=== PATIENT | female | born 1985 | race Caucasian/White ===

== ENCOUNTER 2017-01-18 10:37 | Day surgery (SDC) | payer OTHER ==
--- NOTE | 2017-01-17 17:20 | HISTORY & PHYSICAL EXAMINATION ---
DATE OF ADMISSION: 01/18/2017 She is presenting on 01/18/2017 for D&E for missed . HISTORY OF PRESENT ILLNESS: The patient is a 31-year-old white female, para 1-0-0-1, 8 weeks 6 days by dates, measuring 7 weeks 5 days by ultrasound today, revealing a demise. The patient has a history of subchorionic hemorrhage. She is not bleeding or cramping at the present time. She was given options for D&E versus expectant management and the patient chose D&E. She was given informed consent including the risks, benefits and alternatives to the procedure. PAST MEDICAL HISTORY: Positive for chlamydia in the past. PAST SURGICAL HISTORY: x1 in 2016. SOCIAL HISTORY: Denies smoking, alcohol or drug use. OBSTETRICAL HISTORY: x1 for non-reassuring heart tones. FAMILY HISTORY: Noncontributory. REVIEW OF SYSTEMS: Negative. ALLERGIES: No known allergies. MEDICATIONS: vitamins. PHYSICAL EXAMINATION: HEENT: Within normal limits. LUNGS: Clear to auscultation. CARDIOVASCULAR: Regular rate and rhythm. ABDOMEN: Soft and gravid. No pain. EXTREMITIES: Within normal limits. NEUROLOGICALLY: Intact. ASSESSMENT: Missed at 7 weeks 5 days. PLAN: D&E. The patient is O positive and will not receive RhoGAM.
[~2017-01-18] VITALS: Ht 162.6 cm; Wt 70.0 kg
[~2017-01-18 10:37] MED LIST: CEFAZOLIN 2000MG IV PUSH 10 ML IV SCH; LACTATED RINGER'S 1000ML 1,000 ML IV SCH; MTR600X PO; OXYC5TAB PO; PATIENT'S HEIGHT AND/OR WEIGHT NEEDED SCH; PRENTAB26 PO
[2017-01-18 11:38] VITALS: BP 111/70; PULSE 76; TEMP 36.9; O2SAT 100; Ht 162.6 cm; Wt 70.0 kg
[2017-01-18 11:56] LABS: BASO % 0.4 %; BASO ABS # 0.03 K/uL (0-0.2); EOS % 1.1 %; HEMATOCRIT 36.2 % (37-47); IG% 0.1 %; LYMPH % 27.1 %; LYMPH ABS # 1.94 K/uL (1.2-3.4); MEAN CELL VOLUME 88.3 fL (80-100); MEAN CORPUSCULAR HEMOGLOBIN 29.5 pg (25-34); MEAN PLATELET VOLUME 10.2 fL (7.4-10.4); MONO % 6.4 %; NEUT % 64.9 %; PLATELET COUNT 227 K/uL (130-400); WHITE BLOOD COUNT 7.17 K/uL (4.8-10.8)
[2017-01-18 11:58] LABS: COMPLETE YES; MEAN CORPUSCULAR HGB CONC 33.4 g/dl (32-36)
[2017-01-18] MEDS ORDERED: FENTANYL CITRATE INJ 50 MCG/1 ML 2 ML VIAL IV PRN (12:00)
[2017-01-18] MEDS ORDERED: ONDANSETRON INJ 2 MG/ML 2 ML VIAL IV PRN ×2 (12:00→16:30)
[2017-01-18] MEDS ORDERED: LABETALOL HCL IV 5 MG/ML 20ML IV PRN (12:00)
[2017-01-18] MEDS ORDERED: HYDROmorphone INJ 1 MG/ML SYR IV PRN (12:00)
[2017-01-18] MEDS ORDERED: MEPERIDINE HCL 25 MG/ML CARP IV PRN (12:00)
[2017-01-18] MEDS ORDERED: EpHEDrine SULFATE INJ 50 MG/ML AMP IV PRN (12:00)
[2017-01-18] MEDS ORDERED: ATROPINE SULFATE 0.1 MG/ML 5ML SYR IV PRN (12:00)
--- NOTE | 2017-01-18 14:01 | History & Physical Bridge Note ---
H&P Re-Evaluation Bridge Note: I have examined the patient, reviewed the History & Physical and in the interval since the performance of the History & Physical I have noted the following changes of clinical significance: No changes noted
[2017-01-18] MEDS ORDERED: LIDOCAINE HCL 2% 2 ML VIAL (20MG/ML) ONE (14:54)
[2017-01-18] MEDS ORDERED: PROPOFOL IV EMULSION 10 MG/ML 20 ML VIAL IV ONE (14:54)
[2017-01-18] MEDS ORDERED: FENTANYL CITRATE INJ 50 MCG/1 ML 2 ML VIAL ONE (14:55)
[2017-01-18] MEDS ORDERED: MIDAZOLAM HCL 1 MG/ML 2ML VIAL ONE (14:55)
[2017-01-18] MEDS ORDERED: MISOPROSTOL 200 MCG TAB PV ONE (15:45)
[2017-01-18] MEDS ORDERED: ONDANSETRON INJ 2 MG/ML 2 ML VIAL ONE (15:55)
[2017-01-18] MEDS ORDERED: DEXAMETHASONE SOD INJ 4 MG/ML VIAL ONE (15:55)
[2017-01-18] MEDS ORDERED: SODIUM CHLORIDE 0.9% 1000ML 1,000 ML IV SCH (16:16)
[2017-01-18] MEDS ORDERED: OXYC-57 PO ×3 (16:18→16:27)
--- NOTE | 2017-01-18 16:19 | Discharge Instructions ---
Discharge Instructions Date of Service Jan 18, 2017. Admission Reason for Admission: Missed Discharge Discharge Diagnosis / Problem: postop Discharge Goals Goal(s): Routine recovery after surgery Activity Recommendations Activity Limitations: as noted below ACTIVITY RECOMMENDATIONS: * Avoid tampons, douching, hot tubs, pools, and intercourse until bleeding has stopped. * May shower as usual. * No strenuous activity for 24-48 hours. After 24-48 hours, you can do anything you feel like doing (driving and sports are okay). RETURN TO SCHOOL/WORK: * You may return to school or work after 24 hours unless specified by your physician. DIET: * Resume previous diet. MEDICATIONS: Resume previous medications unless instructed otherwise by your surgeon. Ibuprofen 200mg 2-3 tablets every 4-6 hours as needed --OR-- Aleve 2 tablets every 8-12 hours as needed for post-operative discomfort Medications are over the counter. Tylenol may be used if above medications are contraindicated or not preferred. Medication should be taken with food or milk. do not take on an empty stomach. SPECIAL CARE INSTRUCTIONS: * Check temperature twice daily for one week. Report any elevation over 101 degrees. * Call office if you experience increased pelvic pain or discomfort not relieved by pain medicine, if you have foul smelling vaginal discharge, if you have bleeding that is heavier than a normal menstrual flow. If you are changing a maxi pad every 1- 2 hours, this is too heavy. vaginal spotting is normal for 1-2 weeks. FOLLOW UP VISIT: Call your doctor's office for a post-operative visit. . Current Hospital Diet Patient's current hospital diet: Discharge Diet Recommended Diet: Regular Diet Procedures Procedures Performed: Dilatation and Evacution with suction Pending Studies Studies pending at discharge: no Medical Emergencies . Who to Call and When: Medical Emergencies: If at any time you feel your situation is an emergency, please call 911 immediately. . Non-Emergent Contact Non-Emergency issues call your: Specialist . . "Provider Documentation" section prepared by Jose Sanchez. . VTE Core Measure Inpt VTE Proph given/why not?: Treatment not indicated
[2017-01-18] MEDS ORDERED: IBUPROFEN 600 MG TAB PO PRN (16:30)
[2017-01-18] MEDS ORDERED: KETOROLAC TROMETHAMINE 30 MG/ML VIAL IV. PRN (16:30)
[2017-01-18] MEDS ORDERED: OXYCODONE/ACETAMINOPHEN 5-325 TAB PO PRN ×2 (16:30)
[2017-01-18] MEDS ORDERED: METOCLOPRAMIDE HCL INJ 5 MG/ML 2 ML VIAL IV PRN (16:30)
[2017-01-18] MEDS ORDERED: HYDROCODONE/ACETAMOPHEN 5/325MG TAB PO PRN ×2 (16:30)
[2017-01-18] MEDS ORDERED: MTR600X PO (16:30)
--- NOTE | 2017-01-18 16:53 | Anesthesiology Progress Note ---
Anesthesia Post Op Note Date & Time Jan 18, 2017 at 16:52 Vital Signs Pain Intensity: 0 Vital Signs Past 12 Hours Date Time Temp Pulse Resp B/P (MAP) Pulse Ox O2 Delivery O2 Flow Rate FiO2 01/18/17 16:45 69 18 119/77 100 Room Air 01/18/17 16:35 9 18 115/80 100 Oxymask 10 01/18/17 16:25 81 14 104/65 100 Oxymask 10 01/18/17 16:16 36.5 56 14 95/63 100 Oxymask 10 01/18/17 11:38 36.9 76 18 111/70 (84) 100 Room Air Notes Mental Status: alert / awake / arousable, participated in evaluation Pt Amnestic to Procedure: Yes Nausea / Vomiting: adequately controlled Pain: adequately controlled Airway Patency, RR, SpO2: stable & adequate BP & HR: stable & adequate Hydration State: stable & adequate Anesthetic Complications: no major complications apparent
[2017-01-18 17:03] VITALS: BP 122/66; PULSE 58; TEMP 36.6; O2SAT 100
[2017-01-18 17:35] VITALS: BP 115/67; PULSE 71; TEMP 36.6; O2SAT 100
[2017-01-18 18:00] VITALS: BP 123/68; PULSE 72; TEMP 36.6; O2SAT 100
--- NOTE | 2017-01-18 20:14 | OPERATIVE REPORT ---
DATE OF OPERATION: 01/18/2017 INDICATION FOR PROCEDURE: This is a 31-year-old, with missed at 8 weeks. PREOPERATIVE DIAGNOSIS: Missed at 8 weeks. POSTOPERATIVE DIAGNOSIS: Same. SURGEON: Jose Sanchez MD PROJECT ASST: None. ANESTHESIA: General. ESTIMATED BLOOD LOSS: 20 mL. IV FLUIDS: 1 liter. URINE OUTPUT: 150 mL of clear urine at the beginning of the procedure. FINDINGS: An 8-10 weeks' sized uterus, moderate amount of products of conception evacuated. The vaginal and pelvic exam was unremarkable. PATHOLOGY: Products of conception. COMPLICATIONS: None. DRAINS: None. DISPOSITION: Stable to recovery room. PROCEDURE: The patient was taken to the operating room where she was prepped and draped in normal sterile fashion in dorsal lithotomy position. The bladder was catheterized and 150 mL of clear urine was obtained. A weighted speculum was placed in the vagina. Lincoln retractor was used to retract the anterior part of the vagina. A single tooth tenaculum was used to grab the cervix. Cervix was sounded to 9 cm. Cervix was dilated to a size 24. A size #8 suction curette was introduced into the uterine cavity. Suction was performed and one could see the products of conception going through the suction tube. After suction, a sharp curette was introduced in the uterine cavity and curettage performed in all 4 quadrants until a gritty texture was obtained. Suction again was performed and this time no products of conception were seen coming through the tube. There was good hemostasis at the end of the procedure. The single toothed tenaculum site had no bleeding. All instruments were removed from the vagina and the uterus and accounted for x2 including sponges and retractors. The patient was sent to recovery in stable condition. I attest to the content of the Intraoperative Record and any orders documented therein. Any exception s are noted below.
== END 2017-01-18 18:15 | disposition home or self-care (01) ==
LOC: C.ACU 10:37
PROVIDERS: ATTEND Obstetrics & Gynecology
DX: O02.1 Missed abortion (principal)

== ENCOUNTER 2018-09-17 02:39 | Inpatient (IN) ==
[2018-09-17] MEDS ORDERED: OXYTOCIN 30 UNITS/500 ML BAG IV PRN ×2 (02:59→13:40)
[2018-09-17 03:25] LABS: Hematocrit (blood only) 39.1 % (37-47); Hemoglobin 13.3 g/dL (12.0-16.0); Mean Corpuscular Volume 87.9 fL (80-100); Mean Platelet Volume 10.9 fL (7.4-10.4); Platelet Count 198 K/uL (130-400); RDW Coefficient of Variation 14.3 % (11.5-14.5); RDW Standard Deviation 46.3 fL (36.4-46.3); Red Blood Count 4.45 M/uL (4.2-5.4); White Blood Count 12.15 K/uL (4.8-10.8)
[2018-09-17] MEDS: LACTATED RINGER'S 1,000 ML IV PRN ×3 (03:26→11:19)
[2018-09-17] MEDS ORDERED: fentaNYL citrate 100 MCG/2 ML VIAL ONE (03:29)
[2018-09-17] MEDS ORDERED: ePHEDrine sulfate 50 MG/ML AMP ONE (03:29)
[2018-09-17] MEDS ORDERED: BUPIVACAINE 0.25% 30 ML VIAL ONE (03:29)
[2018-09-17] MEDS ORDERED: fentaNYL 2MCG/ML ROPIV 1.25MG/ML 100 ML BAG EPI ONE (03:30)
--- NOTE | 2018-09-17 04:20 | Anesthesiology Consultation ---
Date of Service September 17, 2018 Assessment & Plan (1) Encounter for pre-operative examination: Chart Review Chart Review: Patient NOT seen in Pre Admission Testing and Acceptable Risk for Labor Epidural Consults Requested none History Height/Weight Height: 5 ft 4 in Weight: 90.265 kg Allergies Allergy/AdvReac Type Severity Reaction Status Date / Time No Known Allergies Allergy Verified 09/17/18 03:23 Medications Home Medications Medication Instructions Recorded Confirmed Last Taken vit no.[id number]-[id number] 1 tab PO DAILY 09/17/18 09/17/18 09/16/18 08:00 [ Vitamin] Active Medications Generic Name Dose Route Start Last Admin Trade Name Freq PRN Reason Stop Dose Admin Lactated Ringer's 1,000 mls @ 125 mls/hr 09/17/18 02:59 09/17/18 03:26 Lr IV 09/19/18 02:58 999 mls/hr .Q8H PRN Administration L&D Protocol Protocol Past Medical History Medical History Spontaneous 2016 with D/C [place] teeth removed Past Surgical History Surgical History Previous section 2016 for intolerance Social History Smoking Status: Former smoker Do You Dip or Chew Tobacco: No Hx Alcohol Use: No Hx Substance Use: No substance use type: does not use Physical Exam Vital Signs Last Vital Signs Temp 37.0 C 09/17/18 02:57 Pulse 74 09/17/18 04:17 Resp 18 09/17/18 02:57 BP 121/78 09/17/18 04:16 Pulse Ox 96 09/17/18 04:17 Testing Laboratory Results 09/17/18 03:12
[2018-09-17] MEDS ORDERED: ONDANSETRON INJ 2 MG/ML 2 ML VIAL IV PRN (04:24)
[2018-09-17] MEDS ORDERED: ePHEDrine sulfate 50 MG/ML AMP IV PRN (04:24)
[2018-09-17] MEDS ORDERED: NALOXONE HCL 0.4 MG/1 ML VIAL/CARP IV PRN (04:24)
[2018-09-17] MEDS ORDERED: DiphenhydrAMINE HCL 50 MG/ML VIAL IV PRN (04:24)
[2018-09-17] MEDS ORDERED: fentaNYL 2MCG/ML ROPIV 1.25MG/ML 100 ML BAG EPI PRN (04:24)
[2018-09-17] MEDS ORDERED: NALOXONE HCL 1 MG in SODIUM CHLORIDE 0.9% 1000ML 1,000 ML IV PRN (04:24)
[2018-09-17] MEDS ORDERED: NALBUPHINE HCL INJ 10 MG/ML AMP IV PRN (04:24)
--- NOTE | 2018-09-17 04:28 | Labor Progress Brief Note ---
Date of Service September 17, 2018 Met pt and spouse Prior. wishes to do TOLAC discussed c/sec risk and alternatives again [facility] consent signed {t assures me in addition to my discussion,she has also had talks w/ Dr Boyd and wishes to proceed Epidural analgesia in place FHR; CAT1 ctx 2-3mins VE; 4/100/-1 Results & Data Vital Signs (Past 12 Hours) Vital Signs Temp Pulse Resp BP Pulse Ox 09/17/18 04:22 90 95 09/17/18 04:18 75 130/81 09/17/18 04:17 74 96 09/17/18 04:16 74 121/78 94 09/17/18 04:14 76 129/79 09/17/18 04:12 71 122/64 96 09/17/18 04:11 84 129/61 09/17/18 04:08 92 H 91 09/17/18 04:07 91 H 98 09/17/18 04:06 90 148/76 H 09/17/18 04:04 97 H 120/84 09/17/18 04:02 73 98 09/17/18 03:57 73 98 09/17/18 02:57 37.0 C 57 L 18 116/77 09/17/18 02:56 57 L 116/77
--- NOTE | 2018-09-17 09:54 | Labor Progress Brief Note ---
Date of Service September 17, 2018 Pt doing well FHR; CAT1 VE; 8/100/0 with bulging membranes ctx; 2-4mins Results & Data Vital Signs (Past 12 Hours) Vital Signs Temp Pulse Resp BP Pulse Ox 09/17/18 09:48 61 98 09/17/18 09:47 68 137/77 09/17/18 09:43 65 98 09/17/18 09:38 67 99 09/17/18 09:33 80 99 09/17/18 09:31 81 121/79 94 09/17/18 09:28 61 96 09/17/18 09:23 59 L 98 09/17/18 09:18 59 L 123/73 99 09/17/18 09:13 66 98 09/17/18 09:08 67 97 09/17/18 09:03 68 99 09/17/18 09:01 60 118/75 09/17/18 08:58 70 97 09/17/18 08:54 70 94 09/17/18 08:53 67 98 09/17/18 08:48 69 96 09/17/18 08:46 74 119/79 09/17/18 08:43 73 98 09/17/18 08:38 66 97 09/17/18 08:33 63 97 09/17/18 08:32 74 115/77 09/17/18 08:27 68 97 09/17/18 08:22 77 97 09/17/18 08:17 69 97 09/17/18 08:16 63 117/71 09/17/18 08:12 84 96 09/17/18 08:07 84 98 09/17/18 08:03 66 121/78 94 09/17/18 08:02 80 96 09/17/18 08:00 18 09/17/18 07:57 76 97 09/17/18 07:52 69 97 09/17/18 07:47 77 116/75 97 09/17/18 07:42 88 96 09/17/18 07:37 74 96 09/17/18 07:33 76 110/72 09/17/18 07:32 78 97 09/17/18 07:31 78 94 09/17/18 07:27 78 97 09/17/18 07:22 75 97 09/17/18 07:17 77 97 09/17/18 07:16 88 119/71 93 09/17/18 07:12 76 96 09/17/18 07:10 37.1 C 18 09/17/18 07:07 87 96 09/17/18 07:02 83 96 09/17/18 07:01 80 122/74 91 09/17/18 07:00 18 09/17/18 06:57 82 96 09/17/18 06:52 78 96 09/17/18 06:47 70 97 09/17/18 06:46 70 116/73 94 09/17/18 06:42 72 96 09/17/18 06:37 71 96 09/17/18 06:32 94 H 97 09/17/18 06:31 95 H 106/68 09/17/18 06:30 18 09/17/18 06:27 87 97 09/17/18 06:22 97 H 96 09/17/18 06:17 89 97 09/17/18 06:16 104 H 107/67 94 09/17/18 06:12 77 96 09/17/18 06:07 79 96 09/17/18 06:02 70 115/66 94 09/17/18 06:00 18 09/17/18 05:57 70 96 09/17/18 05:52 75 95 09/17/18 05:47 70 108/66 96 09/17/18 05:42 66 96 09/17/18 05:37 87 95 09/17/18 05:32 71 96 09/17/18 05:31 66 113/69 09/17/18 05:30 18 09/17/18 05:27 78 96 09/17/18 05:22 72 97 09/17/18 05:17 77 97 09/17/18 05:16 87 112/87 09/17/18 05:12 90 94 09/17/18 05:07 83 96 09/17/18 05:04 100 H 94 09/17/18 05:02 73 96 09/17/18 05:01 57 L 114/80 09/17/18 05:00 18 09/17/18 04:57 65 96 09/17/18 04:52 63 96 09/17/18 04:47 62 95 09/17/18 04:44 81 127/86 09/17/18 04:43 62 94 09/17/18 04:42 59 L 96 09/17/18 04:39 70 125/81 09/17/18 04:37 64 96 09/17/18 04:35 57 L 119/79 09/17/18 04:32 68 98 09/17/18 04:31 56 L 127/79 09/17/18 04:30 18 09/17/18 04:27 69 94 09/17/18 04:25 80 111/80 09/17/18 04:22 90 95 09/17/18 04:18 75 130/81 09/17/18 04:17 74 96 09/17/18 04:16 74 121/78 94 09/17/18 04:14 76 129/79 09/17/18 04:12 71 122/64 96 09/17/18 04:11 84 129/61 09/17/18 04:08 92 H 91 09/17/18 04:07 91 H 98 09/17/18 04:06 90 148/76 H 09/17/18 04:04 97 H 120/84 09/17/18 04:02 73 98 09/17/18 03:57 73 98 09/17/18 02:57 37.0 C 57 L 18 116/77 09/17/18 02:56 57 L 116/77
--- NOTE | 2018-09-17 11:15 | History and Physical Report ---
DATE OF ADMISSION: 09/17/2018 The patient is a 33-year-old G3, P1, due date 09/13/2018 making her 40 weeks 4 days who presented to labor and delivery with contractions. On arrival, she was mohinder and upon exam she was found to be 4 cm dilated. Decision was therefore made to admit patient and anticipate vaginal delivery. The patient is a prior section. In the office she had been seen several times and has been counseled on risks of or trial of labor after . We discussed risks of uterine rupture, though small, is still present. The patient after several concerns decided to proceed with trial of labor after section. Today on admission we discussed that again and she had concerns showing that she is willing to undergo a trial of labor after . COURSE: Unremarkable. LABORATORIES: Blood type O positive, antibody negative, rubella immune, GBS negative. PAST MEDICAL HISTORY: No history of diabetes, hypertension or asthma. PAST SURGICAL HISTORY: The patient has had dental surgery, section. ALLERGIES: No known drug allergies. SOCIAL HISTORY: Denies tobacco, drug or alcohol use. FAMILY HISTORY: Noncontributory. PHYSICAL EXAMINATION: GENERAL: Well-developed, well-nourished white female in labor discomfort. HEART: S1, S2, regular rhythm and rate. LUNGS: Clear to auscultation bilaterally. PELVIC: By nurse on admission, patient is 4 cm dilated. EXTREMITIES: No cyanosis, clubbing or edema. ASSESSMENT AND PLAN: 33-year-old G2, P1 at 40 weeks and 4 days. Previous section. The patient wishes to try to do trial of labor after . Risks has been discussed several times in the office and today on admission has been discussed again. The patient wishes to proceed with trial of labor. She was admitted and we anticipate vaginal delivery at this moment.
[2018-09-17] MEDS ORDERED: METHYLERGONOVINE MALEATE 0.2 MG/ML AMP ONE (13:31)
[2018-09-17] MEDS ORDERED: OXYCODONE/ACETAMINOPHEN 5mg/325mg TAB PO PRN (13:40)
[2018-09-17] MEDS ORDERED: ACETAMINOPHEN W/CODEINE #3 1 TAB PO PRN (13:40)
[2018-09-17] MEDS ORDERED: SUPERCREAM 0.870% 15 GM JAR EXT PRN (13:40)
[2018-09-17] MEDS ORDERED: HYDROCORTISONE ACETATE 25 MG SUPP PR PRN (13:40)
[2018-09-17] MEDS ORDERED: BENZOCAINE 20% AER SPR 82.5 GM CAN EXT PRN (13:40)
[2018-09-17] MEDS ORDERED: BISACODYL 10 MG SUPP PR PRN (13:40)
[2018-09-17] MEDS ORDERED: METHYLERGONOVINE MALEATE 0.2 MG/ML AMP IM ONE (13:40)
[2018-09-17] MEDS ORDERED: ACETAMINOPHEN 325 MG TAB PO PRN (13:40)
[2018-09-17] MEDS ORDERED: DIPHTHERIA/TETANUS/PERTUSSIS 0.5 ML SYR/VIAL IM ONE (13:40)
--- NOTE | 2018-09-17 14:59 | Anesthesia Procedure Note ---
Date of Service September 17, 2018 Anesthesia Post Epidural Note Vital Signs Vital Signs: Temp Pulse Resp BP Pulse Ox 37.1 C 54 L 20 112/66 94 09/17/18 10:36 09/17/18 14:46 09/17/18 14:16 09/17/18 14:46 09/17/18 13:38 Notes Mental Status: alert / awake / arousable and participated in evaluation Nausea / Vomiting: adequately controlled Pain: adequately controlled Airway Patency, RR, SpO2: stable & adequate BP & HR: stable & adequate Hydration State: stable & adequate Neuraxial Anesthesia: was administered and sensory block is resolving Anesthetic Complications: no major complications apparent and Pt Satisfied with anesthetic care Epidural: Removed without complications and With tip intact
[2018-09-17] MEDS: IBUPROFEN 600 MG TAB PO PRN (20:04)
[2018-09-17] MEDS: DOCUSATE SODIUM 100 MG CAP PO SCH (20:04)
--- NOTE | 2018-09-18 00:06 | Operative Report ---
DATE OF OPERATION: 09/17/2018 The patient had a previous for distress, requested attempted . She is a 3, at this point para 2. She had an ectopic . She was admitted in spontaneous labor. She was about 4 cm when she was admitted. She had to be about 5-6. She received epidural anesthesia from which she received good pain relief. Membranes eventually ruptured spontaneously. Fluid was clear. She had an unstimulated labor. She went to full dilatation and under an hour pushed out a live female infant via direct occiput anterior position over an intact perineum. was suctioned through the mouth and the nose. Cord was clamped and cut by the father. Cord blood was taken. With I.V. Pitocin running, the placenta was removed intact. We also gave her 0.2 of IM Methergine to help the uterus contract. The uterus contracted nicely. Hemostasis was good. Perineum was intact. Estimated blood loss was under 200 mL. One and 5-minute Apgars in my estimation were 8 and 9 respectively. I attest to the content of the Intraoperative Record and any orders documented therein. Any exception s are noted below.
[2018-09-18 06:36] LABS: Hematocrit (blood only) 37.9 % (37-47); Hemoglobin 12.6 g/dL (12.0-16.0); Mean Corpuscular Hgb Conc 33.2 g/dL (32-36); Mean Corpuscular Volume 89.4 fL (80-100); Mean Platelet Volume 11.4 fL (7.4-10.4); Platelet Count 174 K/uL (130-400); RDW Coefficient of Variation 14.8 % (11.5-14.5); RDW Standard Deviation 48.2 fL (36.4-46.3); Red Blood Count 4.24 M/uL (4.2-5.4)
[2018-09-18] MEDS: IBUPROFEN 600 MG TAB PO PRN ×2 (07:44→13:50)
[2018-09-18] MEDS: DOCUSATE SODIUM 100 MG CAP PO SCH (07:44)
[2018-09-18] MEDS ORDERED: PRENATAL VITAMIN 1 TAB PO SCH (08:00)
--- NOTE | 2018-09-18 10:07 | Obstetrical Progress Note ---
Date of Service September 18, 2018 Subjective doing fine Physical Exam Constitutional: WD/WN, vitals as above comfortable abdomen soft fundus firm no edema neg Helga's for discharge Results & Data Vital Signs (Past 12 Hours) Vital Signs Temp Pulse Resp BP 09/18/18 04:18 36.8 C 76 18 118/79 09/17/18 23:00 36.8 C 81 16 110/67 Laboratory Results Laboratory Results - last 48 hr 09/17/18 09/18/18 03:12 05:52 WBC 12.15 H 16.30 H RBC 4.45 4.24 Hgb 13.3 12.6 Hct 39.1 37.9 MCV 87.9 89.4 MCH 29.9 29.7 MCHC 34.0 33.2 RDW Std Deviation 46.3 48.2 H RDW Coeff of Gregoria 14.3 14.8 H Plt Count 198 174 MPV 10.9 H 11.4 H
[2018-09-18] MEDS ORDERED: BISACODYL 5 MG TABEC PO SCH (20:00)
== END 2018-09-18 15:20 | disposition home or self-care (01) | DRG 807 ==
LOC: OPB 02:39 → 4S1 02:44 → 4S2 16:35